=== PATIENT | male | born 1975 | race Two or more races ===

== ENCOUNTER 2020-01-12 21:36 | Inpatient (IN) | payer OTHER ==
[~2020-01-12] VITALS: Ht 167.6 cm; Wt 81.0 kg
[2020-01-12 23:00] LABS: Eosinophils # (auto) 0.1 10 ^3/uL (0-0.8); Monocytes # (auto) 0.3 10 ^3/uL (0-1.3); Red Cell Distribution Width 13.1 % (11.8-14.3)
[2020-01-12] MEDS ORDERED: MORPHINE SULFATE 4 MG/ML SYR/VIAL IV ONE (23:00)
[2020-01-12] MEDS ORDERED: ONDANSETRON HCL 4 MG/2 ML VIAL IV ONE (23:00)
[2020-01-12 23:02] LABS: Basophils # (auto) 0.2 10 ^3/uL (0-0.2); Basophils % (auto) 1.2 % (0.0-2.0); Eosinophils % (auto) 0.8 % (0.0-7.0); Hematocrit 38.4 % (41.0-53.0); Hemoglobin 13.5 g/dL (13.5-17.5); Lymphocytes # (auto) 1.6 10 ^3/uL (0.4-5.4); Lymphocytes % (auto) 11.7 % (10.0-50.0); Mean Corpuscular Hemoglobin 29.9 pg (28.0-32.0); Mean Corpuscular Volume 85.4 fL (80.0-100.0); Monocytes % (auto) 2.3 % (0.0-12.0); Neutrophils # (auto) 11.8 10 ^3/uL (1.6-8.6); Nucleated Red Blood Cells % 0.8 %; Platelet Count (auto) 300 10^3/uL (140-450); White Blood Cell 14.1 10^3/uL (4.4-10.8)
[2020-01-12 23:16] LABS: INR 0.97 (0.9-1.15); Partial Thromboplastin Time 20.8 sec (23.0-31.2)
[2020-01-12 23:19] LABS: Alanine Aminotransferase 27 U/L (16-61); Albumin 3.6 g/dL (3.4-5.0); Anion Gap 12 (5-15); Aspartate Aminotransferase 22 U/L (15-37); BUN/Creatinine Ratio 7.7; Blood Urea Nitrogen 26 mg/dL (7-18); Calcium 9.2 mg/dL (8.5-10.1); Carbon Dioxide 18 mmol/L (21-32); Chloride 99 mmol/L (98-107); GFR African American 26 mL/min; GFR Non-African American 21 mL/min; Glucose 79 mg/dL (74-106); Magnesium 2.3 mg/dL (1.6-2.6); Potassium 3.3 mmol/L (3.5-5.1); Sodium 129 mmol/L (136-145)
[2020-01-12 23:24] LABS: Alkaline Phosphatase 64 U/L (45-117); Bilirubin, Total 0.5 mg/dL (0.2-1.0); Total Protein 7.4 g/dL (6.4-8.2)
[2020-01-12 23:26] LABS: Urine Bacteria NONE SEEN /hpf (None Seen); Urine Blood TRACE /uL (Negative); Urine Specific Gravity 1.004 (1.001-1.035); Urine WBC <1 /hpf (0 - 3)
[2020-01-12 23:41] LABS: Amphetamine Screen, Urine POSITIVE (NEGATIVE); Barbiturate Scree,Urine NEGATIVE (NEGATIVE); Benzodiazephine Screen, Urine NEGATIVE (NEGATIVE); Cannabinoid Screen, Urine NEGATIVE (NEGATIVE); Cocaine Screen, Urine NEGATIVE (NEGATIVE)
[2020-01-12 23:48] LABS: Opiate Scree,Urine NEGATIVE (NEGATIVE); Phencyclidine Screen, Urine NEGATIVE (NEGATIVE)
[2020-01-13] MEDS ORDERED: DOCUSATE SOD 100 MG CAP PO PRN (02:15)
[2020-01-13] MEDS ORDERED: hydrALAZINE HCL 25 MG TAB PO PRN (02:15)
[2020-01-13] MEDS ORDERED: ACETAMINOPHEN 325 MG TAB PO PRN (02:15)
[2020-01-13] MEDS ORDERED: HYDROcodone-ACET 5/325MG TAB PO PRN (02:15)
[2020-01-13] MEDS ORDERED: SODIUM CHLORIDE 0.9% 1,000 ML IV SCH (02:15)
[2020-01-13] MEDS ORDERED: NITROGLYCERIN 0.4 MG SL TAB SL PRN (02:15)
[2020-01-13] MEDS ORDERED: MORPHINE SULF INJ 2 MG/ML SYRINGE 1ML IV PRN (02:15)
[2020-01-13] MEDS ORDERED: MORPHINE SULFATE 4 MG/ML SYR/VIAL IV PRN (02:15)
[2020-01-13] MEDS ORDERED: POTASSIUM CHL 20 Meq TABLET PO ONE (02:15)
[2020-01-13] MEDS ORDERED: ONDANSETRON HCL 4 MG/2 ML VIAL IV PRN (02:15)
[2020-01-13 03:44] VITALS: BP 156/110
[2020-01-13 08:42] VITALS: BP 130/96
[2020-01-13 08:55] LABS: Basophils # (auto) 0.1 10 ^3/uL (0-0.2); Eosinophils # (auto) 0.2 10 ^3/uL (0-0.8); Eosinophils % (auto) 2.5 % (0.0-7.0); Hematocrit 36.6 % (41.0-53.0); Hemoglobin 12.4 g/dL (13.5-17.5); Lymphocytes # (auto) 1.5 10 ^3/uL (0.4-5.4); Lymphocytes % (auto) 19.4 % (10.0-50.0); Mean Corpuscular Hemoglobin 28.8 pg (28.0-32.0); Mean Corpuscular Volume 84.9 fL (80.0-100.0); Monocytes # (auto) 0.3 10 ^3/uL (0-1.3); Monocytes % (auto) 3.5 % (0.0-12.0); Neutrophils # (auto) 5.6 10 ^3/uL (1.6-8.6); Neutrophils % (auto) 73.6 % (37.0-80.0); Nucleated Red Blood Cells % 0.1 %; Platelet Count (auto) 318 10^3/uL (140-450); Red Blood Cells 4.31 10^6/uL (4.5-5.90); Red Cell Distribution Width 12.8 % (11.8-14.3); White Blood Cell 7.6 10^3/uL (4.4-10.8)
[2020-01-13] MEDS ORDERED: cefTRIAXone 1GM/50ML D5W 50 ML IV SCH (09:00)
[2020-01-13 09:09] LABS: BUN/Creatinine Ratio 9.5; Calcium 8.7 mg/dL (8.5-10.1); Potassium 4.1 mmol/L (3.5-5.1)
[2020-01-13] MEDS: FAMOTIDINE 20 MG TAB PO SCH ×2 (10:19→21:51)
[2020-01-13] MEDS: amLODIPine BESYLATE 5 MG TAB PO SCH (10:19)
[2020-01-13 13:00] VITALS: BP 128/86
[2020-01-13 16:46] VITALS: BP 113/80
[2020-01-13 22:00] VITALS: BP 122/85
[2020-01-14 05:00] VITALS: BP 125/84
[2020-01-14 07:05] LABS: Basophils # (auto) 0.1 10 ^3/uL (0-0.2); Basophils % (auto) 0.9 % (0.0-2.0); Eosinophils # (auto) 0.4 10 ^3/uL (0-0.8); Eosinophils % (auto) 4.9 % (0.0-7.0); Hematocrit 38.2 % (41.0-53.0); Hemoglobin 13.2 g/dL (13.5-17.5); Lymphocytes # (auto) 1.8 10 ^3/uL (0.4-5.4); Lymphocytes % (auto) 22.6 % (10.0-50.0); Mean Corpuscular Hemoglobin 29.5 pg (28.0-32.0); Mean Corpuscular Hgb Conc. 34.6 g/dL (32.0-36.0); Mean Corpuscular Volume 85.4 fL (80.0-100.0); Monocytes # (auto) 0.5 10 ^3/uL (0-1.3); Neutrophils # (auto) 5.1 10 ^3/uL (1.6-8.6); Neutrophils % (auto) 65.6 % (37.0-80.0); Nucleated Red Blood Cells % 0.1 %; Platelet Count (auto) 336 10^3/uL (140-450); Red Blood Cells 4.47 10^6/uL (4.5-5.90); Red Cell Distribution Width 13.4 % (11.8-14.3); White Blood Cell 7.8 10^3/uL (4.4-10.8)
[2020-01-14 07:09] LABS: Potassium 4.1 mmol/L (3.5-5.1)
[2020-01-14 07:16] LABS: Albumin 3.2 g/dL (3.4-5.0); BUN/Creatinine Ratio 13.1; Bilirubin, Total 0.6 mg/dL (0.2-1.0); Calcium 8.7 mg/dL (8.5-10.1); Total Protein 6.7 g/dL (6.4-8.2)
[2020-01-14 09:00] VITALS: BP 126/89
[2020-01-14] MEDS: amLODIPine BESYLATE 5 MG TAB PO SCH (09:18)
[2020-01-14] MEDS: FAMOTIDINE 20 MG TAB PO SCH (09:19)
[2020-01-14 13:00] VITALS: BP 117/80
[2020-01-14 16:39] VITALS: BP 125/81
== END 2020-01-14 17:45 | disposition home or self-care (01) | DRG 812 ==
LOC: ER 21:36 → EDBD 21:36 → TELE 21:37 → TELE-WESTW 01-13 02:33
PROVIDERS: ADMIT Nurse Practitioner Family; ATTEND Internal Medicine Pulmonary Disease
DX: T43.621A Poisoning by amphetamines, accidental (unintentional), initial encounter (principal); I16.0 Hypertensive urgency; F10.20 Alcohol dependence, uncomplicated; R51.9 Headache, unspecified; E87.1 Hypo-osmolality and hyponatremia; E87.6 Hypokalemia; N17.0 Acute kidney failure with tubular necrosis; E44.1 Mild protein-calorie malnutrition; G31.9 Degenerative disease of nervous system, unspecified; I12.9 Hypertensive chronic kidney disease with stage 1 through stage 4 chronic kidney disease, or unspecified chronic kidney disease; N18.9 Chronic kidney disease, unspecified; H53.8 Other visual disturbances; Z68.28 Body mass index [BMI] 28.0-28.9, adult; Z91.14 Patient's other noncompliance with medication regimen; Z79.899 Other long term (current) drug therapy; Z79.891 Long term (current) use of opiate analgesic; Z79.01 Long term (current) use of anticoagulants; G92 Toxic encephalopathy; E88.09 Other disorders of plasma-protein metabolism, not elsewhere classified; F15.10 Other stimulant abuse, uncomplicated
CPT/HCPCS: 36415; 70450; 71045; 80048; 80053; 80307; 80320; 81001; 83735; 83880; 84484; 85025; 85610; 85730; 87086; 93005; 96361; 96374; 96375; 99291; G0378; J0696; J2405